=== PATIENT | female | born 1940 | race Caucasian/White ===

== ENCOUNTER → 2018-01-08 15:38 | Outpatient (CLI) | payer MEDICARE, SELFPAY ==
--- NOTE | 2018-01-08 15:50 | XR_ITS ---
XR hip RT 2-3V w/pelvis Ordering Physician: Ezequiel Jamil MD Patient Age: 77 years: Female HISTORY: ITS.REASON: RT. HIP PAIN TECHNIQUE: Right hip AP and frog-leg view along with AP pelvis. COMPARISON lumbar spine study from 2013 FINDINGS No acute findings at the right hip. Right hip joint space fairly well maintained with only some scant narrowing superior right hip compared to the left. Negligible. There is more pronounced hypertrophic lipping about the margin of the right acetabulum the left also noted. These features may reflect some mild early degenerative changes. The femoral head and neck appear intact. Trochanteric region intact. At the left hip we again note a dense sclerotic area just above the left acetabulum. Similar slightly more pronounced than on previous 2013 lumbar spine study which includes this area most likely benign bone island. There is mild hypertrophic ridging about the rim of left acetabulum prominent hypertrophic and sclerotic changes are seen at the left aspect of L5/S1 disc and facet. Similar to old exam . Remainder of osseous pelvis appears intact and stable. Mild demineralization IMPRESSION No acute findings at the right hip. No fracture Minor degenerative changes right hip more so than left
--- NOTE | 2018-01-08 15:50 | XR_ITS ---
XR XR lumbar spine min 4V Ordering Physician: Ezequiel Jamil MD Patient Age: 77 years: Female HISTORY: ITS.REASON: RT. HIP PAIN Right-sided low back pain and pelvic pain TECHNIQUE: Five-view lumbar spine series COMPARISON :Previous L-spine series 2 view from 01/31/2014 FINDINGS Overall similar appearance to previous study 2013. Again we see the prominent exuberant facet hypertrophy, sclerosis and arthropathy the left at L5/S1 facet. These features do appear to be stable. Also facet hypertrophy and arthropathy the left at L4/5, less pronounced There is disc space narrowing to the left at L4/5 L5 demonstrates sacralization bilaterally but most extensive sacralization is seen to the left There may be slight additional disc space narrowing L1/2 T12/S1 but this is negligible change The vertebral bodies are intact with no compression fractures. The prominent enlarged spinous processes articulate with one anothe r , which can also be a source of back pain IMPRESSION Exuberant facet hypertrophy/arthropathy on left at L5/S1 & L4/5. Overall appearance similar to 2014 L-spine study. . Degenerative disc space narrowing L5 4/5 > L5/S1 Sacralization of L5 most extensive on left
== END ==
PROVIDERS: PCP Family Medicine; Visit Provider Family Medicine
DX: M25.551 Pain in right hip (principal)
CPT/HCPCS: 72110; 73502